=== PATIENT | female | born 1950 | race Two or more races ===

== ENCOUNTER 2022-07-18 11:57 | Inpatient (IN) | payer OTHER ==
[~2022-07-18] VITALS: Ht 157.5 cm; Wt 83.9 kg
[2022-07-18] MEDS ORDERED: SYNTHROID50 MCG PO (15:21)
[2022-07-18] MEDS ORDERED: XIGDUO XR 5 MG1 EACH PO (15:22)
[2022-07-18] MEDS ORDERED: VERAPAMIL HCL80 MG PO (15:22)
[2022-07-18] MEDS ORDERED: LOSARTAN-HCTZ1 EAC2 PO (15:22)
[2022-07-18] MEDS ORDERED: CALTRATE+D3 PL1 EACH PO (15:23)
[2022-07-18] MEDS ORDERED: CENTRUM ADULTS1 EACH PO (15:23)
[2022-07-18] MEDS ORDERED: D3 + K2 DOTS 11 EACH PO (15:23)
[2022-07-18] MEDS ORDERED: VITAMIN C500 M6 PO (15:23)
[2022-07-21] MEDS ORDERED: ATORVASTATIN CA10 MG (08:10)
[2022-07-24] MEDS ORDERED: HYOSCYAMINE0.125 M1 SL (13:49)
[2022-07-24] MEDS ORDERED: OXYCODONE HCL5 MG PO (13:50)
== END 2022-07-24 15:02 | disposition home or self-care (01) | DRG 331 ==
LOC: O/R 07-21 05:13 → SURG 07-21 09:30 → SURH 07-21 11:08 → SURG 07-21 12:15 → SURH 07-24 15:02
PROVIDERS: ADMIT Surgery; ATTEND Surgery
PROC: 07BB4ZZ Excision of Mesenteric Lymphatic, Percutaneous Endoscopic Approach (ICD-10-PCS; 2022-07-21)
PROC: 3E0F7GC Introduction of Other Therapeutic Substance into Respiratory Tract, Via Natural or Artificial Opening (ICD-10-PCS; 2022-07-21)
PROC: 0DTF4ZZ Resection of Right Large Intestine, Percutaneous Endoscopic Approach (ICD-10-PCS; principal; 2022-07-21 09:30)
DX: C18.2 Malignant neoplasm of ascending colon (principal); R59.0 Localized enlarged lymph nodes; E61.2 Magnesium deficiency; E83.39 Other disorders of phosphorus metabolism; E03.9 Hypothyroidism, unspecified; E11.9 Type 2 diabetes mellitus without complications; I10 Essential (primary) hypertension; Z79.4 Long term (current) use of insulin